=== PATIENT | male | born 1970 | race American Indian/Alaskan Native ===

== ENCOUNTER 2018-04-07 15:51 | Emergency (ER) | payer OTHER ==
[2018-04-07] MEDS ORDERED: Labetalol 5 mg/ml Inj 20ML IV STA ×2 (16:13→17:50)
[2018-04-07 16:14] VITALS: TEMP 98.1
[2018-04-07] MEDS ORDERED: Labetalol 5mg/ml (4ml) ONE ×2 (16:26→18:13)
[2018-04-07 16:55] LABS: BASO # 0.1 K/uL (0.0-0.2); BASO % 0.8 % (0.0-2.0); EOS # 0.1 K/uL (0.0-0.7); EOS % 1.8 % (0.0-4.0); HEMOGLOBIN 13.8 g/dL (12.0-18.0); LYMPH # 1.7 K/uL (1.0-4.3); MEAN CELL VOLUME 84.8 fL (80.0-94.0); MEAN CORPUSCULAR HEMOGLOBIN 28.7 pg (27.0-31.0); MEAN CORPUSCULAR HGB CONC 33.8 g/dL (33.0-37.0); MEAN PLATELET VOLUME 7.9 fL (7.2-11.7); MONO # 0.5 K/uL (0.0-0.8); MONO % 6.7 % (0.0-10.0); NEUT # 4.5 K/uL (1.8-7.0); NEUT % 65.7 % (50.0-75.0); RBC 4.81 Mil/uL (4.40-5.90); RED CELL DISTRIBUTION WIDTH 14.4 % (11.5-14.5); WHITE BLOOD COUNT 6.9 K/uL (4.8-10.8)
--- NOTE | 2018-04-07 17:06 | C.PDOC ---
History Of Present Illness 47 y/o male with a PMHx of HTN, presents to the ED after he was referred from clinic due to elevated blood pressure. Patient states he has blood pressure meds at home, however denies compliance with meds. Reports his pressure was checked at the clinic, found to be more elevated than usual, and 911 was called. He denies any chest pain, headache, visual change, nausea, vomiting, or SOB. Time Seen by Provider: 04/07/18 16:05 Chief Complaint (Nursing): High Blood Pressure History Per: Patient History/Exam Limitations: no limitations Onset/Duration Of Symptoms: Hrs Current Symptoms Are (Timing): Still Present Past Medical History Reviewed: Historical Data, Nursing Documentation, Vital Signs Vital Signs: Last Vital Signs Temp 98.1 F 04/07/18 16:03 Pulse 83 04/07/18 16:03 Resp 18 04/07/18 16:03 BP 216/128 H 04/07/18 16:03 Pulse Ox 98 04/07/18 16:03 - Medical History PMH: HTN (non compliant) Family History: States: No Known Family Hx - Social History Hx Alcohol Use: Yes Hx Substance Use: No - Immunization History Hx Tetanus Toxoid Vaccination: No Hx Influenza Vaccination: No Hx Pneumococcal Vaccination: No Review Of Systems Except As Marked, All Systems Reviewed And Found Negative. Constitutional: Positive for: Other (Elevated BP). Negative for: Fever, Sweats Eyes: Negative for: Vision Change Cardiovascular: Negative for: Chest Pain Respiratory: Negative for: Cough, Shortness of Breath Gastrointestinal: Negative for: Nausea, Vomiting, Abdominal Pain Neurological: Negative for: Weakness, Numbness, Headache, Dizziness Physical Exam - Physical Exam Appears: Well, Non-toxic, No Acute Distress Skin: Warm, Dry Head: Atraumatic, Normacephalic Eye(s): bilateral: Normal Inspection, PERRL, EOMI Oral Mucosa: Moist Neck: Normal ROM Chest: Symmetrical, No Tenderness Cardiovascular: Rhythm Regular, No Murmur Respiratory: Normal Breath Sounds, No Rales, No Rhonchi, No Wheezing Gastrointestinal/Abdominal: Soft, No Tenderness, No Distention Extremity: Normal ROM, No Calf Tenderness, No Deformity, No Swelling Pulses: Left Radial: Normal, Right Radial: Normal Neurological/Psych: Oriented x3, Normal Speech Gait: Steady ED Course And Treatment - Laboratory Results Result Diagrams: 04/07/18 16:49 04/07/18 16:49 ECG: Interpreted By Me, Viewed By Me ECG Rhythm: Sinus Rhythm Interpretation Of ECG: normal intervals, left axis deviation, nonspecific ST and T wave abnormalities Rate From EC (bpm) O2 Sat by Pulse Oximetry: 98 (RA) Pulse Ox Interpretation: Normal Medical Decision Making Medical Decision Making: Impression: Hypertension Plan: --EKG --Blood work --Chest x-ray --20 mg IV Labetalol --Reassess patient is cp free, no cp in ED or prior, bp improved, 180/100, will discharge home and advise follow up with pmd within 2 days Disposition Counseled Patient/Family Regarding: Studies Performed, Diagnosis, Need For Followup, Rx Given - Disposition Referrals: [facility] [Outside] Darien Chaudhry MD [Staff Provider] - Disposition: HOME/ ROUTINE Disposition Time: 18:31 Condition: STABLE Additional Instructions: follow up with your doctor within 2 days call to make an appointment take medications as prescribed return o ER if symptoms worsens or progress Prescriptions: amLODIPine [Norvasc] 5 mg PO DAILY #12 tab Instructions: High Blood Pressure (DC) Forms: General Discharge Instructions, [facility] (Polish), Work Excuse - Clinical Impression Clinical Impression: Hypertension - Scribe Statement The provider has reviewed the documentation as recorded by the Scribrene Spencer Provider Attestation: All medical record entries made by the Scribe were at my direction and personally dictated by me. I have reviewed the chart and agree that the record accurately reflects my personal performance of the history, physical exam, medical decision making, and the department course for this patient. I have also personally directed, reviewed, and agree with the discharge instructions and disposition.
[2018-04-07 17:10] LABS: ALB/GLOB RATIO 1.5 (1.0-2.1); ALBUMIN 4.4 g/dL (3.5-5.0); ALT/SGPT 38 U/L (21-72); AST/SGOT 36 U/L (17-59); BLOOD UREA NITROGEN 16 mg/dL (9-20); CALCIUM 9.3 mg/dl (8.6-10.4); GFR NON-AFRICAN AMERICAN > 60
[2018-04-07 17:18] LABS: B-TYPE NATRIURETIC PEPTIDE 180 pg/mL (0-450)
[2018-04-07 17:50] VITALS: RESP 18
[2018-04-07 18:23] VITALS: BP 180/111; PULSE 86
[2018-04-07 18:32] VITALS: O2SAT 98
--- NOTE | 2018-04-07 21:01 | RAD ---
Date of service: 04/07/2018 PROCEDURE: CHEST RADIOGRAPH, 1 VIEW HISTORY: SOB COMPARISON: None available. FINDINGS: LUNGS: Clear. PLEURA: No pneumothorax or pleural fluid seen. CARDIOVASCULAR: Heart is top-normal in size. Normal. OSSEOUS STRUCTURES: No significant abnormalities. VISUALIZED UPPER ABDOMEN: Normal. OTHER FINDINGS: None. IMPRESSION: No focal infiltrate or CHF. Top-normal size heart.
--- NOTE | 2018-04-08 20:14 | CARD ---
APPROVED REPORT Date of service: 04/07/2018 EKG Measurement Heart [id number] <Conclusion> Normal sinus rhythm Minimal voltage criteria for LVH, may be normal variant Nonspecific ST and T wave abnormality Abnormal ECG
== END 2018-04-07 18:55 | disposition home or self-care (01) ==
LOC: C.ER 15:51
DX: I10 Essential (primary) hypertension (principal)

== ENCOUNTER 2018-08-29 09:38 | Emergency (ER) | payer OTHER ==
[2018-08-29 10:07] VITALS: BMI 43.0
--- NOTE | 2018-08-29 11:06 | C.PDOC ---
History Of Present Illness 47-year-old male presents to the ED for evaluation of pain and swelling noted to left ankle since waking up this morning. Patient denies any known injuries to the area, history of arthritis or gout, or calf pain at this time. In addition, patient was found to have elevated blood pressure upon ED arrival. Patient states he takes Labetalol but discontinued Norvasc because it was making him feel tired. Patient has not yet speaking to his PMD about changing medications. Patient denies headache, chest pain and shortness of breath at this time. Time Seen by Provider: 08/29/18 10:43 Chief Complaint (Nursing): Lower Extremity Problem/Injury History Per: Patient History/Exam Limitations: no limitations Onset/Duration Of Symptoms: Hrs Current Symptoms Are (Timing): Still Present Additional History Per: Patient - Ankle/Foot Description Of Injury: denies: Fell, Struck With Object, Struck Against Object, Twisted Past Medical History Reviewed: Historical Data, Nursing Documentation, Vital Signs Vital Signs: Last Vital Signs Temp 99.3 F 08/29/18 10:07 Pulse 77 08/29/18 10:07 Resp 18 08/29/18 10:07 BP 171/113 H 08/29/18 10:07 Pulse Ox 98 08/29/18 10:07 Primary Care Provider: Nicol Fall - Medical History PMH: HTN (non compliant) Surgical History: No Surg Hx Family History: States: Unknown Family Hx - Social History Hx Alcohol Use: No Hx Substance Use: No - Immunization History Hx Tetanus Toxoid Vaccination: No Hx Influenza Vaccination: No Hx Pneumococcal Vaccination: No Review Of Systems Constitutional: Negative for: Fever, Chills Cardiovascular: Positive for: Other (elevated blood pressure ). Negative for: Chest Pain Respiratory: Negative for: Shortness of Breath Musculoskeletal: Positive for: Other (left ankle pain and swelling ) Neurological: Negative for: Headache Physical Exam - Physical Exam Appears: Non-toxic, No Acute Distress Skin: Normal Color, Warm, Dry Head: Atraumatic, Normacephalic Oral Mucosa: Moist Neck: Supple Chest: Symmetrical, No Deformity, No Tenderness Cardiovascular: Rhythm Regular, No Murmur Respiratory: Normal Breath Sounds, No Rales, No Rhonchi, No Wheezing Extremity: Tenderness (mild, to left ankle on palpatoin ), No Calf Tenderness, Capillary Refill (less than 2 seconds ), No Deformity, Swelling (slight, to left ankle ), No Other (erythema or warmth noted to left ankle ) Pulses: Left Dorsalis Pedis: Normal, Right Dorsalis Pedis: Normal Neurological/Psych: Normal Speech, Normal Cognition ED Course And Treatment O2 Sat by Pulse Oximetry: 98 (on RA) Pulse Ox Interpretation: Normal - Other Rad Left ankle XR X-Ray: Viewed By Me, Read By Radiologist Interpretation: Date of service: 08/29/2018. PROCEDURE: Left Ankle Radiographs. HISTORY: pain/swelling (atraumatic). COMPARISON: None available. TECHNIQUE: 3 views obtained. FINDINGS: BONES: Normal. No fracture. JOINTS: Normal. No osteoarthritis. Ankle mortise maintained. Talar dome intact. SOFT TISSUES: Normal. OTHER FINDINGS: None. IMPRESSION: Normal left ankle radiographs. Progress Note: Left ankle XR ordered and reviewed. Motrin PO given for ankle pain. Catapres PO given for elevated blood pressure. On re-evaluation patient feels better, crutch traoning by PT. Bp went down. Patient was instructed to f/u with PMD and Ortho/podiatry. Disposition - Disposition Referrals: Evgeny Beltran MD [Staff Provider] - Jose Wong DPM [Doctor Podiatric Medicine] - Disposition: HOME/ ROUTINE Disposition Time: 13:54 Condition: STABLE Additional Instructions: Follow up with PMD, Ortho or Script Girl within 1-2 days. Return to Ed if feel worse. Instructions: Swollen Joints (DC) Forms: [email or web address] [facility] [facility] (Tunisian) - Clinical Impression Clinical Impression: Ankle swelling - PA / EMBEDDED SYSTEMS ENGINEER / Resident Statement MD/DO has reviewed & agrees with the documentation as recorded. - Scribe Statement The provider has reviewed the documentation as recorded by the Scribe (Maddy Cabrales) All medical record entries made by the Scribe were at my direction and personally dictated by me. I have reviewed the chart and agree that the record accurately reflects my personal performance of the history, physical exam, medical decision making, and the department course for this patient. I have also personally directed, reviewed, and agree with the discharge instructions and disposition.
--- NOTE | 2018-08-29 12:44 | RAD ---
Date of service: 08/29/2018 PROCEDURE: Left Ankle Radiographs. HISTORY: pain/swelling (atraumatic) COMPARISON: None available. TECHNIQUE: 3 views obtained. FINDINGS: BONES: Normal. No fracture. JOINTS: Normal. No osteoarthritis. Ankle mortise maintained. Talar dome intact SOFT TISSUES: Normal. OTHER FINDINGS: None. IMPRESSION: Normal left ankle radiographs.
[2018-08-29 13:04] VITALS: BP 151/78; PULSE 69; RESP 16; TEMP 97.6
[2018-08-29 13:56] VITALS: O2SAT 98
== END 2018-08-29 14:06 | disposition home or self-care (01) ==
LOC: C.ER 09:38
DX: M79.89 Other specified soft tissue disorders (principal); I10 Essential (primary) hypertension
CPT/HCPCS: 73610; 97116; 97161; 99285; G8978; G8979; G8980